=== PATIENT | female | born 1945 | race Caucasian/White ===

== ENCOUNTER 2021-04-29 15:38 | Emergency (ER) | payer OTHER ==
[2021-04-29 16:08] VITALS: TEMP 98.8; BMI 27.3
[2021-04-29] MEDS ORDERED: CASIRIVIMAB/IMDEVIMAB 10 ML in SODIUM CHLORIDE 100 ML IVPB ONE (16:28)
[2021-04-29 17:41] LABS: HEMATOCRIT 40.2 % (32.4-45.2); HEMOGLOBIN 13.8 GM/dL (10.7-15.3); MCHC 34.3 g/dl (32.0-36.0); MEAN CELL VOLUME 87.5 fl (80-96); MEAN PLT VOLUME 8.2 fl (7.5-11.1); PLATELET COUNT 165 10^3/uL (134-434); RBC 4.59 M/mm3 (3.60-5.2); RDW 13.7 % (11.6-15.6); WHITE BLOOD COUNT 5.1 K/mm3 (4.0-10.0)
[2021-04-29 18:07] LABS: CALCIUM 8.9 mg/dL (8.5-10.1)
[2021-04-29 18:08] LABS: BLOOD UREA NITROGEN 19.6 mg/dL (7-18)
[2021-04-29 18:11] LABS: CREATININE 0.8 mg/dL (0.55-1.3)
[2021-04-29 19:36] VITALS: BP 120/75; PULSE 85
== END 2021-04-29 19:34 | disposition home or self-care (01) ==
LOC: JCOVINFU 15:38
DX: U07.1 COVID-19 (principal)
CPT/HCPCS: 36415; 80048; 85027; 99284-25; Q0240